=== PATIENT | female | born 1960 | race Caucasian/White ===

== ENCOUNTER 2019-02-03 20:35 | Emergency (ER) | payer OTHER ==
[2019-02-03 20:45] VITALS: BP 139/94; PULSE 98; TEMP 98.4; BMI 21.6
[2019-02-03] MEDS ORDERED: SODIUM CHLORIDE 0.9% 500 ML INFUS.BAG IV ONE (20:58)
--- NOTE | 2019-02-03 21:29 | PDOC ---
History of Present Illness - General Chief Complaint: Alcohol intoxication Stated Complaint: INTOX Time Seen by Provider: 02/03/19 20:39 - History of Present Illness Initial Comments: 02/03/19 21:04 58 y/o F presenting to ED with alcohol intoxication from [facility]. Pt. has been drinking since yesterday. Unable to tell me how much she drank or what she drank. She reports having incidents of alcohol intoxication with withdrawal in the past (chills) She denies any chest pain, SOB, dysuria, hematuria. Pt/ is agitated and unable to elaborate further. 02/03/19 21:05 Past History - Past Medical History Allergies/Adverse Reactions: Allergies Allergy/AdvReac Type Severity Reaction Status Date / Time Penicillins Allergy Mild Rash Verified 02/04/19 08:33 Home Medications: Ambulatory Orders Albuterol Sulfate Inhaler - [Ventolin HFA Inhaler -] 2 inh PO Q4H PRN #1 inh Norvasc - mg PO DAILY 02/04/19 Ranitidine HCl [Zantac] 150 mg PO BID 02/04/19 Sertraline HCl [Zoloft -] 50 mg PO DAILY 02/04/19 Asthma: Yes (ALBUTEROL INHALER) Cardiac Disorders: No CVA: No COPD: No Diabetes: No GI Disorders: No Disorders: Yes (HX OF UTI AND GONORRHEA IN THE PAST) HTN: No Hypercholesterolemia: No Seizures: No Thyroid Disease: No - Suicide/Smoking/Psychosocial Hx Smoking History: Never smoked Have you smoked in the past 12 months: Yes Number of Cigarettes Smoked Daily: 10 'Breaking Loose' booklet given: 02/25/14 Hx Alcohol Use: Yes (BEER/VODKA) Substance Use Type: Alcohol Hx Substance Use Treatment: Yes (OUT PT REHAB IN [place]) Review of Systems - Review of Systems Able to Perform ROS?: No (pt intoxicated.) Constitutional: Yes: Night Sweats *Physical Exam - Vital Signs Last Vital Signs Temp Pulse Resp BP Pulse Ox 98.4 F 98 H 18 139/94 97 02/03/19 20:39 02/03/19 20:39 02/03/19 20:39 02/03/19 20:39 02/03/19 20:39 - Physical Exam General Appearance: Yes: Nourished, Disheveled HEENT: positive: EOMI. negative: Scleral Icterus (R), Scleral Icterus (L) Neck: positive: Trachea midline, Supple Respiratory/Chest: positive: Wheezing. negative: Chest Tender, Respiratory Distress, Accessory Muscle Use, Labored Respiration, Crackles, Rales Cardiovascular: positive: Regular Rhythm, Regular Rate, S1, S2. negative: Edema , JVD Gastrointestinal/Abdominal: positive: Normal Bowel Sounds, Soft, Tenderness, Other (RUQ, epigastric and suprapubic pain). negative: Hernia, Mass, Hepatomegaly Musculoskeletal: positive: Normal Inspection. negative: CVA Tenderness Extremity: positive: Normal Inspection, Normal Range of Motion. negative: Tender Integumentary: positive: Normal Color, Dry, Warm. 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 negative: Finger to Nose ED Treatment Course - LABORATORY CBC & Chemistry Diagram: 02/03/19 21:45 02/03/19 21:45 - RADIOLOGY Radiology Studies Ordered: Category Date Time Status ABDOMEN US -LIMITED [US] Stat Ultrasound 02/03/19 21:01 Ordered Medical Decision Making - Medical Decision Making 02/03/19 21:08 58 y/o F presenting to ED with alcohol intoxication from [facility]. Some abdominal tenderness present on exam (RUQ and suprapubic) Labs/Imaging/Meds - cbc, cmp -RUQ u/s -RUQ u/s - Non-specific mild dilation of the common duct. -Increased echogenicity of the hepatic parenchyma consistent with diffuse fatty infiltration -Ectatic proximal abdominal aorta 02/03/19 22:25 A bed has been kept on hold for her at [facility]. She will be heading there with security. [facility] refused to accept patient without alcohol level documented. Alcohol level drawn from 1:15 a.m shows alcohol at 283.[address] [facility] would still not accept her at that level . another alcohol level has been drawn and sent to the lab at 4:50a.m Alcohol level 175 pt discharged to [facility]. sobering up and less combative *DC/Admit/Observation/Transfer Diagnosis at time of Disposition: Alcohol intoxication Qualifiers: Complication of substance-induced condition: uncomplicated Qualified Code(s): F10.920 - Alcohol use, unspecified with intoxication, uncomplicated - Discharge Dispostion Disposition: HOME Condition at time of disposition: Stable Decision to Admit order: No - Referrals - Patient Instructions - Post Discharge Activity - Transfer to Acute Care Facility Accepting Physician:: Renee Callahan Transfer comment: 02/03/19 22:57 Pt. being discharged to [facility].
[2019-02-03 21:54] LABS: BASO % 1.1 % (0-2.0); HEMATOCRIT 45.3 % (32.4-45.2); HEMOGLOBIN 15.3 GM/dL (10.7-15.3); LYMPH % 18.9 % (8-40); MCH 34.9 pg (25.7-33.7); MCHC 33.9 g/dl (32.0-36.0); MEAN CELL VOLUME 103.1 fl (80-96); MEAN PLT VOLUME 10.8 fl (7.5-11.1); MONO % 10.9 % (3.8-10.2); NEUT % 68.1 % (42.8-82.8); PLATELET COUNT 173 K/MM3 (134-434); RBC 4.39 M/mm3 (3.60-5.2); WHITE BLOOD COUNT 7.6 K/mm3 (4.0-10.0)
[2019-02-03 22:16] LABS: ALBUMIN 3.8 g/dl (3.4-5.0); BILIRUBIN,TOTAL 0.2 mg/dL (0.2-1); BLOOD UREA NITROGEN 12.1 mg/dL (7-18); CALCIUM 8.9 mg/dL (8.5-10.1); CREATININE 0.7 mg/dL (0.55-1.3); POTASSIUM 3.7 mmol/L (3.5-5.1); TOT PROT 7.4 g/dl (6.4-8.2)
--- NOTE | 2019-02-03 22:24 | PDOC ---
Documentation entered by Gurpreet Tomlinson SCRIBE, acting as scribe for Wanda Fontana MD. Wanda Fontana MD: This documentation has been prepared by the Davi lennon Daniel, SCRIBE, under my direction and personally reviewed by me in its entirety. I confirm that the documentation accurately reflects all work, treatment, procedures, and medical decision making performed by me. Attending Attestation - Resident Resident Name: [email or web address] - ED Attending Attestation I have performed the following: I have examined & evaluated the patient, The case was reviewed & discussed with the resident, I agree w/resident's findings & plan - HPI HPI: 02/03/19 21:46 The patient is a 58 year old female with a past medical history of asthma sent in today from [facility] for evaluation of alcohol intoxication. The patient was sent in by [facility] for a TERRENCE of 365. Patient is agitated and unable to provide much history. Allergies: penicillins - Physicial Exam PE: 02/03/19 23:27 GENERAL: +visibly drunk. +unsteady on her feet. Awake, alert, in no acute distress HEAD: No signs of trauma EYES: PERRLA, EOMI, sclera anicteric, conjunctiva clear ENT: Auricles normal inspection, hearing grossly normal, nares patent, oropharynx clear without exudates. Moist mucosa NECK: Normal ROM, supple, no lymphadenopathy, JVD, or masses LUNGS: Breath sounds equal, clear to auscultation bilaterally. No wheezes, and no crackles HEART: Regular rate and rhythm, normal S1 and S2, no murmurs, rubs or gallops ABDOMEN: +obese abdomen. Soft, nontender, normoactive bowel sounds. No guarding , no rebound. No masses EXTREMITIES: Normal range of motion, no edema. No clubbing or cyanosis. No cords, erythema, or tenderness NEUROLOGICAL: Cranial nerves II through XII grossly intact. Normal speech SKIN: Warm, Dry, normal turgor, no rashes or lesions noted. - Medical Decision Making 02/03/19 22:21 Labs normal; pt has elevated alk phos and slight RUQ are normal. 02/04/19 03:15 1:15AM alcohol level is 280; we waited 2 hrs. alcohol level is now probably 200 ; pt will be sent to [facility]. I am calling the PA at [facility] and I cannot reach her. I will send the patient over with the hospital security. 02/04/19 04:18 Pt is awake and alert and speaking clearly and requesting a duoneb before she goes to the [facility] area.
[2019-02-04] MEDS ORDERED: ALBUTEROL SO4 2.5/IPRATROPIUM 0.5 INH SOL 3 ML VIAL.NEB. NEB ONE ×2 (04:14→04:32)
[2019-02-04] MEDS ORDERED: MAG HYDROX/AL HYDROX/SIMETH 30 ML UNIT-DOSE CUP PO ONE (04:19)
== END 2019-02-04 05:41 | disposition home or self-care (01) ==
LOC: JER 20:35
PROC: 3E0F7GC Introduction of Other Therapeutic Substance into Respiratory Tract, Via Natural or Artificial Opening (ICD-10-PCS; principal; 2019-02-03)
DX: F10.220 Alcohol dependence with intoxication, uncomplicated (principal); Y90.8 Blood alcohol level of 240 mg/100 ml or more; J45.909 Unspecified asthma, uncomplicated; Z86.19 Personal history of other infectious and parasitic diseases; Z87.440 Personal history of urinary (tract) infections
CPT/HCPCS: 36415; 76705-TC; 80053; 80307; 83690; 85025; 94640; 99282-25

== ENCOUNTER 2019-02-04 08:14 | Inpatient (IN) | payer OTHER ==
[2019-02-04 08:43] VITALS: BMI 25.0
--- NOTE | 2019-02-04 09:08 | HP ---
CIWA Score Nausea/Vomitin Muscle Tremors: 3 Anxiety: 3 Agitation: 3 Paroxysmal Sweats: 1-Minimal Palms Moist Orientation: 0-Oriented Tacttile Disturbances: 1-Very Mild Itch/Numbness Auditory Disturbances: 0-None Visual Disturbances: 1-Very Mild Sensitivity Headache: 2-Mild CIWA-Ar Total Score: 16 - Admission Criteria OASAS Guidelines: Admission for Medically Managed Detox: Requires at least one of the followin. CIWA greater than 12 2. Seizures within the past 24 hours 3. Delirium tremens within the past 24 hours 4. Hallucinations within the past 24 hours 5. Acute intervention needed for co occurring medical disorder 6. Acute intervention needed for co occurring psychiatric disorder 7. Severe withdrawal that cannot be handled at a lower level of care (continued vomiting, continued diarrhea, abnormal vital signs) requiring intravenous medication and/or fluids 8. Admission ROS BHS - HPI Chief Complaint: i need help to stop drinking alcohol Allergies/Adverse Reactions: Allergies Allergy/AdvReac Type Severity Reaction Status Date / Time Penicillins Allergy Mild Rash Verified 02/04/19 08:33 History of Present Illness: this 58 years old female with alcohol dependence,seeking detox,withdrawal symptom patient was intoxicated ,seen in [facility] last night,medically clear to come for detox last detox [facility] last week,not completed asthma on albuterol and symbicort hypertension on norvasc denied seizure gerd syncope multiple admissions in detox but keep relapsing no significant period of sobriety plan for out patient program anxiety,depression,insomnia tar staining both feet and right leg 3 days b;ister both feet Exam Limitations: No Limitations - Ebola screening Have you traveled outside of the country in the last 21 days: No Have you had contact with anyone from an Ebola affected area: No Do you have a fever: No - Review of Systems Constitutional: Chills, Loss of Appetite, Malaise, Night Sweats, Changes in sleep, Weakness EENT: reports: Nose Congestion Respiratory: reports: No Symptoms reported, Other (asyhma) Cardiac: reports: No Symptoms Reported GI: reports: Diarrhea, Nausea, Vomiting, Abdominal cramping : reports: No Symptoms Reported Musculoskeletal: reports: Back Pain, Muscle Pain Integumentary: reports: Dryness Neuro: reports: Headache, Tremors Endocrine: reports: No Symptoms Reported Hematology: reports: No Symptoms Reported Psychiatric: reports: No Sypmtoms Reported, Judgement Intact, Mood/Affect Appropiate, Orientated x3, Anxious, Depressed, other Other Systems: Reviewed and Negative (insomnia) Patient History - Patient Medical History Hx Asthma: Yes (ALBUTEROL INHALER) Hx Chronic Obstructive Pulmonary Disease (COPD): No Hx Cardiac Disorders: No Hx Hypertension: No Hx Hypercholesterolemia: No HX Cerebrovascular Accident: No Hx Seizures: No Hx Diabetes: No Hx Gastrointestinal Disorders: No Hx Genitourinary Disorders: Yes (HX OF UTI AND GONORRHEA IN THE PAST) Hx Thyroid Disease: No Hx Human Immunodeficiency Virus (HIV): No (NEGATIVE HX last 2018 negative) Hx Hepatitis C: No Hx Depression: Yes (NOT ON MED) Hx Suicide Attempt: No (DENIES) Hx Bipolar Disorder: No Hx Schizophrenia: No Other Medical History: no suicidal,no homicidal - Patient Surgical History Past Surgical History: No - PPD History Previous Implant?: Yes Documented Results: Negative w/o proof Implanted On Prior R Admission?: Yes Date: 02/27/14 Results: 0 mm PPD to be Administered?: No - Reproductive History Patient is a Female of Child Bearing Age (11 -55 yrs old): No - Smoking Cessation Smoking history: Never smoked Have you smoked in the past 12 months: Yes Aproximately how many cigarettes per day: 10 Hx Chewing Tobacco Use: No Initiated information on smoking cessation: Yes 'Breaking Loose' booklet given: 02/04/19 - Substance & Tx. History Hx Alcohol Use: Yes Hx Substance Use: No Substance Use Type: Alcohol Hx Substance Use Treatment: Yes ([facility] week not completed) - Substances abused Alcohol Substance route: Oral Frequency: Daily Amount used: 2pints of vodka/2 of 12 ozs of beer Age of first use: 16 Date of last use: 02/03/19 Family Disease History - Family Disease History Family Disease History: Diabetes: Mother, Other: Brother (HTN), Sister (HTN) Admission Physical Exam S - Vital Signs Vital Signs: Vital Signs - 24 hr 02/04/19 08:32 Temperature 97.0 F L Pulse Rate 94 H Respiratory 16 Rate Blood Pressure 160/100 - Physical General Appearance: Yes: Moderate Distress, Tremorous, Sweating, Anxious HEENTM: Yes: Normal ENT Inspection, EDU, Pharynx Normal Respiratory: Yes: Within Normal Limits, Lungs Clear, Normal Breath Sounds Neck: Yes: Within Normal Limits, Supple, Trachea in good position Breast: Yes: Breast Exam Deferred Cardiology: Yes: Within Normal Limits, Regular Rhythm, Regular Rate, S1, S2 Abdominal: Yes: Within Normal Limits, Normal Bowel Sounds, Non Tender, Flat, Soft Genitourinary: Yes: Within Normal Limits Back: Yes: Muscle Spasm Musculoskeletal: Yes: full range of Motion, Back pain, Muscle Pain Extremities: Yes: Tremors, Other (ecchymosis in left lower back blister both feet tar staing both feet and right leg) Neurological: Yes: 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 intact, Fully Oriented, Alert, Motor Strength 5/5 Integumentary: Yes: Dry, Other (ecchymosis left lower back) Lymphatic: Yes: Within Normal Limits - Diagnostic (1) Alcohol dependence with uncomplicated withdrawal Current Visit: No Status: Acute (2) Alcohol dependence with uncomplicated intoxication Current Visit: No Status: Acute (3) Syncope Current Visit: No Status: Acute (4) Asthma Current Visit: No Status: Acute (5) Nicotine dependence Current Visit: No Status: Acute (6) Blister (nonthermal), unspecified foot, sequela Current Visit: No Status: Acute (7) Frequent falls Current Visit: No Status: Acute (8) Essential hypertension Current Visit: No Status: Acute Cleared for Admission S - Detox or Rehab [facility] Level of Care: Medically Managed Detox Regimen/Protocol: Librium Breathalyzer - Breathalyzer Breathalyzer: 0.121 Urine Drug Screen - Test Device Lot number: [id number] Expiration date: 10/30/20 - Control Is test valid?: Yes - Results Drug screen NEGATIVE: No Urine drug screen results: BZO-Benzodiazepines Inpatient Rehab Admission - Rehab Decision to Admit Inpatient rehab admission?: No
[2019-02-04] MEDS ORDERED: MAGNESIUM CITRATE 300 ML BOTTLE PO PRN (09:23)
[2019-02-04] MEDS ORDERED: ACETAMINOPHEN 325 MG TABLET (FP) PO PRN (09:23)
[2019-02-04] MEDS ORDERED: chlordiazePOXIDE HCL 25 MG CAPSULE PO PRN (09:23)
[2019-02-04] MEDS ORDERED: hydrOXYzine PAMOATE 25 MG CAPSULE (FP) PO PRN (09:23)
[2019-02-04] MEDS ORDERED: NICOTINE POLACRILEX 2 MG GUM BUC PRN (09:23)
[2019-02-04] MEDS ORDERED: IBUPROFEN 400 MG TABLET (FP) PO PRN (09:23)
[2019-02-04] MEDS ORDERED: MENTHOL/PHENOL 1 EACH UD MM PRN (09:23)
[2019-02-04] MEDS ORDERED: METHOCARBAMOL 500 MG TABLET PO PRN (09:23)
[2019-02-04] MEDS ORDERED: MAGNESIUM HYDROX 2400MG/30ML ORAL SUSPENSION 30 ML CUP PO PRN (09:23)
[2019-02-04] MEDS ORDERED: BISMUTH SUBSALICYLATE 524 MG/30 ML UD PO PRN (09:23)
[2019-02-04] MEDS: MAG HYDROX/AL HYDROX/SIMETH 30 ML UNIT-DOSE CUP PO PRN (11:11)
[2019-02-04] MEDS: chlordiazePOXIDE HCL 25 MG CAPSULE PO SCH ×3 (11:11→22:39)
[2019-02-04] MEDS: amLODIPine BESYLATE 5 MG TABLET (FP) PO SCH (11:11)
[2019-02-04] MEDS: BUDESONIDE/FORMETEROL FUMARATE 80/4.5 mcg INHALER IH SCH ×2 (11:11→22:38)
[2019-02-04] MEDS: NICOTINE 21 MG/24 HOURS TOPICAL PATCH TD SCH (11:12)
[2019-02-04] MEDS: SILVER SULFADIAZINE 1% TOP CREAM 50 GM JAR TP SCH ×2 (11:12→22:38)
[2019-02-04] MEDS: PRENATAL VITAMINS W/ FOLIC ACID TABLET (FP) PO SCH (11:12)
--- NOTE | 2019-02-04 12:46 | CONSULT ---
[facility] Psychiatric Consult - Data Date of interview: 02/04/19 Admission source: [facility] Identifying data: Patient is approached at bedside for the psychiatric interview. " I have a psychiatrist outside. I don't need to see a psychiatrist her." Ms Lacey declines psychiatric evaluation. Nursing staff is made aware.
[2019-02-04 12:49] LABS: HEMATOCRIT 42.2 % (32.4-45.2); HEMOGLOBIN 14.4 GM/dL (10.7-15.3); MCH 35.1 pg (25.7-33.7); MCHC 34.2 g/dl (32.0-36.0); MEAN CELL VOLUME 102.7 fl (80-96); MEAN PLT VOLUME 11.3 fl (7.5-11.1); RBC 4.11 M/mm3 (3.60-5.2); RDW 13.7 % (11.6-15.6); WHITE BLOOD COUNT 7.9 K/mm3 (4.0-10.0)
[2019-02-04 13:02] LABS: ALBUMIN 3.6 g/dl (3.4-5.0); BILIRUBIN,TOTAL 0.3 mg/dL (0.2-1); BLOOD UREA NITROGEN 12.1 mg/dL (7-18); CALCIUM 8.8 mg/dL (8.5-10.1); CREATININE 0.5 mg/dL (0.55-1.3); POTASSIUM 3.6 mmol/L (3.5-5.1)
[2019-02-04 13:06] LABS: PLATELET COUNT 149 K/MM3 (134-434)
[2019-02-04] MEDS ORDERED: ONDANSETRON *ODT* 4 MG TABLET SL ONE (14:00)
[2019-02-04] MEDS: RANITIDINE HCL 150 MG TABLET (FP) PO SCH ×2 (14:06→22:38)
[2019-02-04] MEDS: ALBUTEROL SO4 8 GM HFA INHALER IH PRN (18:17)
[2019-02-04] MEDS ORDERED: ONDANSETRON *ODT* 4 MG TABLET SL PRN (19:00)
[2019-02-04] MEDS: THIAMINE HCL 100 MG TABLET (FP) PO SCH (22:38)
[2019-02-05] MEDS: chlordiazePOXIDE HCL 25 MG CAPSULE PO SCH ×4 (05:53→22:06)
[2019-02-05] MEDS: MAG HYDROX/AL HYDROX/SIMETH 30 ML UNIT-DOSE CUP PO PRN ×2 (06:34→18:05)
[2019-02-05] MEDS: ALBUTEROL SO4 8 GM HFA INHALER IH PRN ×2 (06:35→20:35)
[2019-02-05] MEDS: RANITIDINE HCL 150 MG TABLET (FP) PO SCH ×2 (10:23→22:07)
[2019-02-05] MEDS: SILVER SULFADIAZINE 1% TOP CREAM 50 GM JAR TP SCH ×2 (10:23→22:06)
[2019-02-05] MEDS: BUDESONIDE/FORMETEROL FUMARATE 80/4.5 mcg INHALER IH SCH ×2 (10:23→22:06)
[2019-02-05] MEDS: PRENATAL VITAMINS W/ FOLIC ACID TABLET (FP) PO SCH (10:23)
[2019-02-05] MEDS: amLODIPine BESYLATE 5 MG TABLET (FP) PO SCH (10:23)
--- NOTE | 2019-02-05 10:48 | PN ---
[facility] CIWA - CIWA Score Nausea/Vomitin-Mild Nausea/No Vomiting Muscle Tremors: 4-Moderate,w/Arms Extend Anxiety: 3 Agitation: 4-Moderately Restless Paroxysmal Sweats: 1-Minimal Palms Moist Orientation: 0-Oriented Tacttile Disturbances: 0-None Auditory Disturbances: 0-None Visual Disturbances: 0-None Headache: 0-None Present CIWA-Ar Total Score: 13 BHS Progress Note (SOAP) Subjective: 58 years old female admitted on 02/04/19 for acute alcohol withdrawal sx management doing well with librium detox ambulating on hallway social with peers less tremor mild sweat Objective: 02/05/19 10:48 Vital Signs Temperature 97.3 F L 02/05/19 09:24 Pulse Rate 82 02/05/19 09:24 Respiratory Rate 18 02/05/19 09:24 Blood Pressure 137/91 02/05/19 09:24 O2 Sat by Pulse Oximetry (%) Laboratory Last Values WBC 7.9 K/mm3 (4.0-10.0) 02/04/19 09:40 RBC 4.11 M/mm3 (3.60-5.2) 02/04/19 09:40 Hgb 14.4 GM/dL (10.7-15.3) 02/04/19 09:40 Hct 42.2 % (32.4-45.2) 02/04/19 09:40 MCV 102.7 fl (80-96) H 02/04/19 09:40 MCH 35.1 pg (25.7-33.7) H 02/04/19 09:40 MCHC 34.2 g/dl (32.0-36.0) 02/04/19 09:40 RDW 13.7 % (11.6-15.6) 02/04/19 09:40 Plt Count 149 K/MM3 (134-434) 02/04/19 09:40 MPV 11.3 fl (7.5-11.1) H 02/04/19 09:40 Sodium 143 mmol/L (136-145) 02/04/19 09:40 Potassium 3.6 mmol/L (3.5-5.1) 02/04/19 09:40 Chloride 106 mmol/L (98-107) 02/04/19 09:40 Carbon Dioxide 25 mmol/L (21-32) 02/04/19 09:40 Anion Gap 12 MMOL/L (8-16) 02/04/19 09:40 BUN 12.1 mg/dL (7-18) 02/04/19 09:40 Creatinine 0.5 mg/dL (0.55-1.3) L 02/04/19 09:40 Est GFR (CKD-EPI)AfAm 124.52 02/04/19 09:40 Est GFR (CKD-EPI)NonAf 107.44 02/04/19 09:40 Random Glucose 91 mg/dL (74-106) 02/04/19 09:40 Calcium 8.8 mg/dL (8.5-10.1) 02/04/19 09:40 Total Bilirubin 0.3 mg/dL (0.2-1) 02/04/19 09:40 AST 27 U/L (15-37) 02/04/19 09:40 ALT 32 U/L (13-61) 02/04/19 09:40 Alkaline Phosphatase 140 U/L (45-117) H 02/04/19 09:40 Total Protein 7.0 g/dl (6.4-8.2) 02/04/19 09:40 Albumin 3.6 g/dl (3.4-5.0) 02/04/19 09:40 RPR Titer Nonreactive (NONREACTIVE) 02/04/19 09:40 lab noted Assessment: 02/05/19 10:48 alcohol withdrawal sx Plan: continue alcohol detox
[2019-02-05] MEDS: NICOTINE 21 MG/24 HOURS TOPICAL PATCH TD SCH (11:13)
[2019-02-05] MEDS: ACETAMINOPHEN 325 MG TABLET (FP) PO PRN (12:30)
[2019-02-05] MEDS ORDERED: cloNIDine HCL 0.1 MG TABLET PO PRN (13:23)
[2019-02-05 16:12] LABS: HYALINE CASTS 10 /lpf (0-8); URINE APPEARANCE CLEAR; URINE BACTERIA 85.7 /hpf (NEGATIVE); URINE BILIRUBIN 1+ (NEGATIVE); URINE COLOR DK YELLOW; URINE GLUCOSE (UA) NEGATIVE (NEGATIVE); URINE KETONE TRACE (NEGATIVE); URINE LEUK ESTERASE TRACE (NEGATIVE); URINE NITRITE NEGATIVE (NEGATIVE); URINE PROTEIN NEGATIVE (NEGATIVE); URINE RBC 1 /hpf (0-4); URINE WBC 2 /hpf (0-5)
[2019-02-05] MEDS: THIAMINE HCL 100 MG TABLET (FP) PO SCH (22:07)
[2019-02-05] MEDS: MELATONIN 5 MG TABLETS PO PRN (22:07)
[2019-02-06] MEDS: chlordiazePOXIDE HCL 25 MG CAPSULE PO SCH ×4 (06:12→22:37)
[2019-02-06] MEDS: NICOTINE 21 MG/24 HOURS TOPICAL PATCH TD SCH (10:30)
[2019-02-06] MEDS: amLODIPine BESYLATE 5 MG TABLET (FP) PO SCH (10:30)
[2019-02-06] MEDS: BUDESONIDE/FORMETEROL FUMARATE 80/4.5 mcg INHALER IH SCH ×2 (10:30→21:29)
[2019-02-06] MEDS: PRENATAL VITAMINS W/ FOLIC ACID TABLET (FP) PO SCH (10:30)
[2019-02-06] MEDS: SILVER SULFADIAZINE 1% TOP CREAM 50 GM JAR TP SCH ×2 (10:30→21:30)
[2019-02-06] MEDS: RANITIDINE HCL 150 MG TABLET (FP) PO SCH ×2 (10:30→21:29)
[2019-02-06] MEDS: ACETAMINOPHEN 325 MG TABLET (FP) PO PRN (12:35)
--- NOTE | 2019-02-06 14:38 | PN ---
[facility] CIWA - CIWA Score Nausea/Vomitin-Mild Nausea/No Vomiting Muscle Tremors: 3 Anxiety: 2 Agitation: 2 Paroxysmal Sweats: 1-Minimal Palms Moist Orientation: 0-Oriented Tacttile Disturbances: 0-None Auditory Disturbances: 0-None Visual Disturbances: 0-None Headache: 0-None Present CIWA-Ar Total Score: 9 S Progress Note (SOAP) Subjective: feeling better today less tremor tolerate food and fluid doing well with librium detox regimen prefers to begin alcohol rehab tomorrow case discuss with counselor and nurse that the patient can be early discharge tomorrow that the patient will be reassess by the provider Objective: 02/06/19 14:40 Vital Signs Temperature 99.2 F 02/06/19 13:45 Pulse Rate 85 02/06/19 13:45 Respiratory Rate 18 02/06/19 13:45 Blood Pressure 133/88 02/06/19 13:45 O2 Sat by Pulse Oximetry (%) Laboratory Last Values WBC 7.9 K/mm3 (4.0-10.0) 02/04/19 09:40 RBC 4.11 M/mm3 (3.60-5.2) 02/04/19 09:40 Hgb 14.4 GM/dL (10.7-15.3) 02/04/19 09:40 Hct 42.2 % (32.4-45.2) 02/04/19 09:40 MCV 102.7 fl (80-96) H 02/04/19 09:40 MCH 35.1 pg (25.7-33.7) H 02/04/19 09:40 MCHC 34.2 g/dl (32.0-36.0) 02/04/19 09:40 RDW 13.7 % (11.6-15.6) 02/04/19 09:40 Plt Count 149 K/MM3 (134-434) 02/04/19 09:40 MPV 11.3 fl (7.5-11.1) H 02/04/19 09:40 Sodium 143 mmol/L (136-145) 02/04/19 09:40 Potassium 3.6 mmol/L (3.5-5.1) 02/04/19 09:40 Chloride 106 mmol/L (98-107) 02/04/19 09:40 Carbon Dioxide 25 mmol/L (21-32) 02/04/19 09:40 Anion Gap 12 MMOL/L (8-16) 02/04/19 09:40 BUN 12.1 mg/dL (7-18) 02/04/19 09:40 Creatinine 0.5 mg/dL (0.55-1.3) L 02/04/19 09:40 Est GFR (CKD-EPI)AfAm 124.52 02/04/19 09:40 Est GFR (CKD-EPI)NonAf 107.44 02/04/19 09:40 Random Glucose 91 mg/dL (74-106) 02/04/19 09:40 Calcium 8.8 mg/dL (8.5-10.1) 02/04/19 09:40 Total Bilirubin 0.3 mg/dL (0.2-1) 02/04/19 09:40 AST 27 U/L (15-37) 02/04/19 09:40 ALT 32 U/L (13-61) 02/04/19 09:40 Alkaline Phosphatase 140 U/L (45-117) H 02/04/19 09:40 Total Protein 7.0 g/dl (6.4-8.2) 02/04/19 09:40 Albumin 3.6 g/dl (3.4-5.0) 02/04/19 09:40 Urine Color Dk yellow 02/05/19 13:30 Urine Appearance Clear 02/05/19 13:30 Urine pH 8.0 (5.0-8.0) D 02/05/19 13:30 Ur Specific [place] 1.019 (1.010-1.035) 02/05/19 13:30 Urine Protein Negative (NEGATIVE) 02/05/19 13:30 Urine Glucose (UA) Negative (NEGATIVE) 02/05/19 13:30 Urine Ketones Trace (NEGATIVE) H 02/05/19 13:30 Urine Blood Negative (NEGATIVE) 02/05/19 13:30 Urine Nitrite Negative (NEGATIVE) 02/05/19 13:30 Urine Bilirubin 1+ (NEGATIVE) H 02/05/19 13:30 Urine Urobilinogen 1.0 mg/dL (0.2-1.0) 02/05/19 13:30 Ur Leukocyte Esterase Trace (NEGATIVE) 02/05/19 13:30 Urine WBC (Auto) 2 /hpf (0-5) 02/05/19 13:30 Urine RBC (Auto) 1 /hpf (0-4) 02/05/19 13:30 Urine Casts (Auto) 10 /lpf (0-8) 02/05/19 13:30 U Epithel Cells (Auto) 5.0 /HPF (0-5/HPF) 02/05/19 13:30 Urine Bacteria (Auto) 85.7 /hpf (NEGATIVE) 02/05/19 13:30 RPR Titer Nonreactive (NONREACTIVE) 02/04/19 09:40 lab noted Assessment: 02/06/19 14:41 mild alcohol withdrawal sx Plan: continue alcohol detox
[2019-02-06] MEDS: ALBUTEROL SO4 8 GM HFA INHALER IH PRN (17:23)
[2019-02-06] MEDS: MAG HYDROX/AL HYDROX/SIMETH 30 ML UNIT-DOSE CUP PO PRN (18:27)
[2019-02-06] MEDS: THIAMINE HCL 100 MG TABLET (FP) PO SCH (21:29)
[2019-02-06] MEDS: MELATONIN 5 MG TABLETS PO PRN (21:30)
[2019-02-07] MEDS ORDERED: chlordiazePOXIDE HCL 10 MG CAPSULE PO PRN
[2019-02-07] MEDS ORDERED: chlordiazePOXIDE HCL 10 MG CAPSULE PO SCH (05:00)
[2019-02-07 06:29] VITALS: BP 131/84; PULSE 63; TEMP 98.1
--- NOTE | 2019-02-07 14:08 | DS ---
[facility] Detox Discharge Summary Admission Date: 02/04/19 Discharge Date: 02/07/19 - History Present History: Alcohol Dependence Additional Comments: 58 years old female admitted on 02/04/19 for acute alcohol withdrawal sx management doing well with librium detox regimen no complication throughout the detox stay alert oriented x 3 no dizzness no shortness of breathe speech clearly coherently steady gait patient prefers to go to [facility] today - Physical Exam Results Vital Signs: Vital Signs Temperature 98.1 F 02/07/19 06:28 Pulse Rate 63 02/07/19 06:28 Respiratory Rate 18 02/07/19 06:28 Blood Pressure 131/84 02/07/19 06:28 O2 Sat by Pulse Oximetry (%) Pertinent Admission Physical Exam Findings: alcohol withdrawal sx Laboratory Last Values WBC 7.9 K/mm3 (4.0-10.0) 02/04/19 09:40 RBC 4.11 M/mm3 (3.60-5.2) 02/04/19 09:40 Hgb 14.4 GM/dL (10.7-15.3) 02/04/19 09:40 Hct 42.2 % (32.4-45.2) 02/04/19 09:40 MCV 102.7 fl (80-96) H 02/04/19 09:40 MCH 35.1 pg (25.7-33.7) H 02/04/19 09:40 MCHC 34.2 g/dl (32.0-36.0) 02/04/19 09:40 RDW 13.7 % (11.6-15.6) 02/04/19 09:40 Plt Count 149 K/MM3 (134-434) 02/04/19 09:40 MPV 11.3 fl (7.5-11.1) H 02/04/19 09:40 Sodium 143 mmol/L (136-145) 02/04/19 09:40 Potassium 3.6 mmol/L (3.5-5.1) 02/04/19 09:40 Chloride 106 mmol/L (98-107) 02/04/19 09:40 Carbon Dioxide 25 mmol/L (21-32) 02/04/19 09:40 Anion Gap 12 MMOL/L (8-16) 02/04/19 09:40 BUN 12.1 mg/dL (7-18) 02/04/19 09:40 Creatinine 0.5 mg/dL (0.55-1.3) L 02/04/19 09:40 Est GFR (CKD-EPI)AfAm 124.52 02/04/19 09:40 Est GFR (CKD-EPI)NonAf 107.44 02/04/19 09:40 Random Glucose 91 mg/dL (74-106) 02/04/19 09:40 Calcium 8.8 mg/dL (8.5-10.1) 02/04/19 09:40 Total Bilirubin 0.3 mg/dL (0.2-1) 02/04/19 09:40 AST 27 U/L (15-37) 02/04/19 09:40 ALT 32 U/L (13-61) 02/04/19 09:40 Alkaline Phosphatase 140 U/L (45-117) H 02/04/19 09:40 Total Protein 7.0 g/dl (6.4-8.2) 02/04/19 09:40 Albumin 3.6 g/dl (3.4-5.0) 02/04/19 09:40 Urine Color Dk yellow 02/05/19 13:30 Urine Appearance Clear 02/05/19 13:30 Urine pH 8.0 (5.0-8.0) D 02/05/19 13:30 Ur Specific Fe [employer] 1.019 (1.010-1.035) 02/05/19 13:30 Urine Protein Negative (NEGATIVE) 02/05/19 13:30 Urine Glucose (UA) Negative (NEGATIVE) 02/05/19 13:30 Urine Ketones Trace (NEGATIVE) H 02/05/19 13:30 Urine Blood Negative (NEGATIVE) 02/05/19 13:30 Urine Nitrite Negative (NEGATIVE) 02/05/19 13:30 Urine Bilirubin 1+ (NEGATIVE) H 02/05/19 13:30 Urine Urobilinogen 1.0 mg/dL (0.2-1.0) 02/05/19 13:30 Ur Leukocyte Esterase Trace (NEGATIVE) 02/05/19 13:30 Urine WBC (Auto) 2 /hpf (0-5) 02/05/19 13:30 Urine RBC (Auto) 1 /hpf (0-4) 02/05/19 13:30 Urine Casts (Auto) 10 /lpf (0-8) 02/05/19 13:30 U Epithel Cells (Auto) 5.0 /HPF (0-5/HPF) 02/05/19 13:30 Urine Bacteria (Auto) 85.7 /hpf (NEGATIVE) 02/05/19 13:30 RPR Titer Nonreactive (NONREACTIVE) 02/04/19 09:40 TB (QFT) Incubation (.) 02/04/19 09:40 TB Test (QFT) Nil 0.04 IU/mL (.) 02/04/19 09:40 TB Test (QFT) Mitogen 5.38 IU/mL (.) 02/04/19 09:40 TB Test (QFT) Antigen 0.04 IU/mL (.) 02/04/19 09:40 TB Test (QFT) Negative (Negative) 02/04/19 09:40 TB Positive Criteria (.) 02/04/19 09:40 lab noted - Treatment Hospital Course: Detox Protocol Followed, Detoxed Safely, Responded well, Discharged Condition Good, Rehab Referral Accepted Patient has Accepted a Rehab Referral to: [facility] - Medication Discharge Medications: Ambulatory Orders Albuterol Sulfate Inhaler - [Ventolin HFA Inhaler -] 2 inh PO Q4H PRN #1 inh Norvasc - mg PO DAILY 02/04/19 Ranitidine HCl [Zantac] 150 mg PO BID 02/04/19 Sertraline HCl [Zoloft -] 50 mg PO DAILY 02/04/19 - Diagnosis (1) Asthma Status: Chronic Qualifiers: Asthma severity: mild Asthma persistence: intermittent Asthma complication type: with status asthmaticus Qualified Code(s): J45.22 - Mild intermittent asthma with status asthmaticus (2) Alcohol dependence with uncomplicated withdrawal Status: Acute (3) Essential hypertension Status: Chronic - AMA Did Patient Leave Against Medical Advice: No
[2019-02-08] MEDS ORDERED: chlordiazePOXIDE HCL 10 MG CAPSULE PO SCH (05:00)
[2019-02-09] MEDS ORDERED: chlordiazePOXIDE HCL 10 MG CAPSULE PO ONE (05:00)
== END 2019-02-07 09:00 | disposition home or self-care (01) | DRG 775 ==
LOC: YASAS 08:14 → Y3N 09:25
PROVIDERS: ADMIT Surgery; ATTEND Surgery
PROC: HZ2ZZZZ Detoxification Services for Substance Abuse Treatment (ICD-10-PCS; principal; 2019-02-04)
DX: F10.230 Alcohol dependence with withdrawal, uncomplicated (principal); F10.220 Alcohol dependence with intoxication, uncomplicated; F17.210 Nicotine dependence, cigarettes, uncomplicated; I10 Essential (primary) hypertension; J45.22 Mild intermittent asthma with status asthmaticus; R29.6 Repeated falls; Z87.42 Personal history of other diseases of the female genital tract; Z88.0 Allergy status to penicillin
CPT/HCPCS: 36415; 80053; 81003; 85027; 86480; 86593

== ENCOUNTER 2019-08-17 11:22 | Inpatient (IN) | payer OTHER ==
--- NOTE | 2019-08-17 12:53 | BHS.RME ---
Substance Use & Tx History - Last Treatment Date of last treatment: 02/04/19 to 02/07/19 Where was last treatment: Detox ([facility]) Physical/Psych/Mental Status - Behavior General Behavior: Increased activity (restlessness, agitation) Eye Contact: Normal - Cooperativeness Cooperativeness: Cooperative - Thinking Thought Processes: Logical Thought content: Future oriented - Physical Health Problems Is patient presently having any pain?: No Does patient presently have any injuries (include location): No Does patient currently have a fever: No Is patient : No CIWA Nausea/Vomitin Muscle Tremors: 3 Anxiety: 3 Agitation: 3 Paroxysmal Sweats: 1-Minimal Palms Moist Orientation: 0-Oriented Tacttile Disturbances: 1-Very Mild Itch/Numbness Auditory Disturbances: 0-None (hypertension,jeffrey,insomnia,) Visual Disturbances: 0-None Headache: 2-Mild CIWA-Ar Total Score: 15
--- NOTE | 2019-08-17 16:05 | HP ---
CIWA Score Nausea/Vomitin Muscle Tremors: 3 Anxiety: 3 Agitation: 3 Paroxysmal Sweats: 1-Minimal Palms Moist Orientation: 0-Oriented Tacttile Disturbances: 1-Very Mild Itch/Numbness Auditory Disturbances: 0-None (hypertension,jeffrey,insomnia,) Visual Disturbances: 0-None Headache: 2-Mild CIWA-Ar Total Score: 15 - Admission Criteria OASAS Guidelines: Admission for Medically Managed Detox: Requires at least one of the followin. CIWA greater than 12 2. Seizures within the past 24 hours 3. Delirium tremens within the past 24 hours 4. Hallucinations within the past 24 hours 5. Acute intervention needed for co occurring medical disorder 6. Acute intervention needed for co occurring psychiatric disorder 7. Severe withdrawal that cannot be handled at a lower level of care (continued vomiting, continued diarrhea, abnormal vital signs) requiring intravenous medication and/or fluids 8. Admitting History and Physical - Admission Chief Complaint: i need helpe to stop drinking alcohol History of Present Illness: this 58 years old female with alcohol dependence seeking detox History Source: Patient - Past Medical History Cardiovascular: Yes: HTN Pulmonary: Yes: Asthma ...LMP: 01/14/10 ...: No Psych: Yes: Anxiety, Depression Dermatology: Yes: Eczema - Past Surgical History Past Surgical History: Yes: None - Smoking History Smoking history: Never smoked Have you smoked in the past 12 months: Yes Aproximately how many cigarettes per day: 10 - Alcohol/Substance Use Hx Alcohol Use: Yes - Social History Usual Living Arrangement: Yes: Other ([facility]) Occupation: unemployed on disability History of Recent Travel: No Admission ROS [facility] - [facility] Chief Complaint: i need help to stop drinking alcohol Allergies/Adverse Reactions: Allergies Allergy/AdvReac Type Severity Reaction Status Date / Time Penicillins Allergy Mild Rash Verified 02/04/19 08:33 History of Present Illness: this 58 years old female with alcohol dependence seeking detox,denied seizure, denied syncope multiple admissions in detox last ';11/18 to 02/07/19 eczema nicotine dependence asthma,hypertension longest sobriety 1 year living in the [facility],unemployed anxiety,depression Exam Limitations: No Limitations - Ebola screening Have you traveled outside of the country in the last 21 days: No Have you had contact with anyone from an Ebola affected area: No Have you been sick,other than usual withdrawal symptoms: No Do you have a fever: No - Review of Systems Constitutional: Loss of Appetite, Malaise, Night Sweats, Changes in sleep, Unexplained wgt Loss EENT: reports: Nose Congestion Respiratory: reports: No Symptoms reported, Other (asthma) Cardiac: reports: No Symptoms Reported GI: reports: Nausea, Poor Appetite Integumentary: reports: Dryness Neuro: reports: Headache, Tremors Endocrine: reports: No Symptoms Reported Hematology: reports: No Symptoms Reported Psychiatric: reports: No Sypmtoms Reported, Judgement Intact, Mood/Affect Appropiate, Orientated x3, Agitated, Depressed Other Systems: Reviewed and Negative Patient History - Patient Medical History Hx Asthma: Yes (ALBUTEROL INHALER) Hx Chronic Obstructive Pulmonary Disease (COPD): No Hx Cardiac Disorders: No Hx Hypertension: No Hx Hypercholesterolemia: No HX Cerebrovascular Accident: No Hx Seizures: No Hx Diabetes: No Hx Gastrointestinal Disorders: No Hx Genitourinary Disorders: Yes (HX OF UTI AND GONORRHEA IN THE PAST) Hx Sexually Transmitted Disorders: No Hx Renal Disease (ESRD): No Hx Thyroid Disease: No Hx Human Immunodeficiency Virus (HIV): No (NEGATIVE HX last 2018 negative) Hx Hepatitis C: No Hx Depression: Yes (NOT ON MED) Hx Suicide Attempt: No (DENIES) Hx Bipolar Disorder: No Hx Schizophrenia: No Other Medical History: no suicidal,nop homicidal - Patient Surgical History Past Surgical History: No - PPD History Previous Implant?: Yes Documented Results: Negative w/proof Implanted On Prior R Admission?: Yes Date: 02/27/14 Results: 0 mm PPD to be Administered?: Yes - Reproductive History Patient is a Female of Child Bearing Age (11 -55 yrs old): Yes Last Menstrual Period: 01/14/10 Patient : No - Smoking Cessation Smoking history: Never smoked Have you smoked in the past 12 months: Yes Aproximately how many cigarettes per day: 10 Hx Chewing Tobacco Use: No Initiated information on smoking cessation: Yes 'Breaking Loose' booklet given: 08/17/19 - Substance & Tx. History Hx Alcohol Use: Yes Hx Substance Use: Yes Substance Use Type: Alcohol Hx Substance Use Treatment: Yes ([facility] 02/04/19 to 02/07/19) - Substances abused Alcohol Substance route: Oral Frequency: Daily Amount used: 1pint of vodka Age of first use: 17 Date of last use: 08/16/19 Admission Physical Exam [facility] - Vital Signs Vital Signs: Vital Signs - 24 hr 08/17/19 13:54 Temperature 97.3 F L Pulse Rate 93 H Respiratory 20 Rate Blood Pressure 168/99 - Physical General Appearance: Yes: Moderate Distress, Tremorous, Irritable, Sweating, Anxious HEENTM: Yes: Normal ENT Inspection, Normocephalic, EDU, Pharynx Normal Respiratory: Yes: Lungs Clear, Normal Breath Sounds, No Respiratory Distress Neck: Yes: Within Normal Limits, Supple, Trachea in good position Breast: Yes: Breast Exam Deferred Cardiology: Yes: Within Normal Limits, Regular Rhythm, Regular Rate, S1, S2 Abdominal: Yes: Within Normal Limits, Normal Bowel Sounds, Non Tender, Flat, Soft Genitourinary: Yes: Within Normal Limits Back: Yes: Muscle Spasm Musculoskeletal: Yes: Back pain, Muscle Pain Extremities: Yes: Tremors 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 intact, Fully Oriented, Alert, Motor Strength 5/5 Integumentary: Yes: Dry Lymphatic: Yes: Within Normal Limits - Diagnostic (1) Alcohol dependence with uncomplicated withdrawal Current Visit: No Status: Acute (2) Nicotine dependence Current Visit: No Status: Acute (3) Asthma Current Visit: No Status: Chronic Qualifiers: Asthma severity: mild Asthma persistence: intermittent Asthma complication type: with status asthmaticus Qualified Code(s): J45.22 - Mild intermittent asthma with status asthmaticus (4) Essential hypertension Current Visit: No Status: Chronic Cleared for Admission [facility] - Detox or Rehab [facility] Level of Care: Medically Managed Detox Regimen/Protocol: Librium Breathalyzer - Breathalyzer Breathalyzer: 0.05 Urine Drug Screen - Test Device Lot number: [id number] Expiration date: 05/27/21 - Control Is test valid?: Yes - Results Drug screen NEGATIVE: Yes Urine drug screen results: BZO-Benzodiazepines Inpatient Rehab Admission - Rehab Decision to Admit Inpatient rehab admission?: No
[2019-08-17] MEDS ORDERED: METHOCARBAMOL 500 MG TABLET PO PRN (16:25)
[2019-08-17] MEDS ORDERED: IBUPROFEN 400 MG TABLET (FP) PO PRN (16:25)
[2019-08-17] MEDS ORDERED: hydrOXYzine PAMOATE 25 MG CAPSULE (FP) PO PRN (16:25)
[2019-08-17] MEDS ORDERED: BISMUTH SUBSALICYLATE 524 MG/30 ML UD PO PRN (16:25)
[2019-08-17] MEDS ORDERED: MELATONIN 5 MG TABLETS PO PRN (16:25)
[2019-08-17] MEDS ORDERED: ACETAMINOPHEN 325 MG TABLET (FP) PO PRN ×2 (16:25)
[2019-08-17] MEDS ORDERED: MAGNESIUM HYDROX 2400MG/30ML ORAL SUSPENSION 30 ML CUP PO PRN (16:25)
[2019-08-17] MEDS ORDERED: MENTHOL/PHENOL 1 EACH UD MM PRN (16:25)
[2019-08-17] MEDS ORDERED: NICOTINE POLACRILEX 2 MG GUM BUC PRN (16:25)
[2019-08-17] MEDS ORDERED: MAGNESIUM CITRATE 300 ML BOTTLE PO PRN (16:25)
[2019-08-17] MEDS ORDERED: chlordiazePOXIDE HCL 25 MG CAPSULE PO PRN (16:25)
[2019-08-17 17:07] VITALS: BMI 25.0
[2019-08-17] MEDS: BUDESONIDE/FORMETEROL FUMARATE 160/4.5 mcg INHALER IH SCH (22:25)
[2019-08-17] MEDS: THIAMINE HCL 100 MG TABLET (FP) PO SCH (22:26)
[2019-08-17] MEDS: chlordiazePOXIDE HCL 25 MG CAPSULE PO SCH (22:26)
[2019-08-17] MEDS: MONTELUKAST NA 10 MG TABLET PO SCH (22:26)
[2019-08-17] MEDS: HYDROCORTISONE 0.5% TOPICAL CREAM 30 GM TUBE TP SCH (22:48)
[2019-08-18] MEDS: chlordiazePOXIDE HCL 25 MG CAPSULE PO SCH ×4 (06:01→22:24)
--- NOTE | 2019-08-18 09:14 | PN ---
S CIWA - CIWA Score Nausea/Vomitin-Mild Nausea/No Vomiting Muscle Tremors: 4-Moderate,w/Arms Extend Anxiety: 3 Agitation: 0-Normal Activity Paroxysmal Sweats: 2 Orientation: 0-Oriented Tacttile Disturbances: 0-None Auditory Disturbances: 0-None Visual Disturbances: 1-Very Mild Sensitivity Headache: 2-Mild CIWA-Ar Total Score: 13 BHS Progress Note (SOAP) Subjective: 58 years old female admitted on 08/17/19 for alcohol withdrawal sx management treating with librium detox regiment ate breakfast tolerated food and fluid well resting in bed feeling tired prefers to sleep longer Objective: 08/18/19 09:12 Vital Signs Temperature 97.4 F L 08/18/19 07:33 Pulse Rate 76 08/18/19 07:33 Respiratory Rate 20 08/18/19 07:33 Blood Pressure 144/92 08/18/19 07:33 O2 Sat by Pulse Oximetry (%) 08/18/19 09:13 lab pending 08/18/19 09:13 bp elevation patient will received amlodipine around 10 am Assessment: 08/18/19 09:14 alcohol withdrawal Plan: librium regiment
[2019-08-18] MEDS ORDERED: NORVASC 5 MG PO SCH (10:00)
[2019-08-18] MEDS: BUDESONIDE/FORMETEROL FUMARATE 160/4.5 mcg INHALER IH SCH ×2 (10:21→22:23)
[2019-08-18] MEDS: FAMOTIDINE 20 MG TABLET PO SCH (10:21)
[2019-08-18] MEDS: amLODIPine BESYLATE 5 MG TABLET (FP) PO SCH (10:21)
[2019-08-18] MEDS: PRENATAL VITAMINS W/ FOLIC ACID TABLET (FP) PO SCH (10:22)
[2019-08-18] MEDS: HYDROCORTISONE 0.5% TOPICAL CREAM 30 GM TUBE TP SCH ×2 (10:22→22:23)
[2019-08-18] MEDS: ALBUTEROL SO4 HFA INHALER IH PRN (10:23)
[2019-08-18 11:47] LABS: HEMATOCRIT 34.1 % (32.4-45.2); HEMOGLOBIN 11.8 GM/dL (10.7-15.3); MCH 37.7 pg (25.7-33.7); MCHC 34.6 g/dl (32.0-36.0); MEAN CELL VOLUME 108.9 fl (80-96); MEAN PLT VOLUME 11.9 fl (7.5-11.1); PLATELET COUNT 108 K/MM3 (134-434); RBC 3.13 M/mm3 (3.60-5.2); RDW 13.6 % (11.6-15.6); WHITE BLOOD COUNT 4.4 K/mm3 (4.0-10.0)
[2019-08-18 12:08] LABS: BILIRUBIN,TOTAL 1.5 mg/dL (0.2-1); BLOOD UREA NITROGEN 9.1 mg/dL (7-18); CALCIUM 8.4 mg/dL (8.5-10.1); CREATININE 0.7 mg/dL (0.55-1.3); TOT PROT 6.3 g/dl (6.4-8.2)
[2019-08-18 12:09] LABS: POTASSIUM 2.8 mmol/L (3.5-5.1)
--- NOTE | 2019-08-18 14:34 | CONSULT ---
[facility] Psychiatric Consult - Data Date of interview: 08/18/19 Admission source: [facility] Identifying data: Patient is a 58 year old single female, mother of one, currently resides in a intermediate and is supported by SSI/SSD. This is one of multiple admissions for patient. Patient admitted to for alcohol dependence. Substance Abuse History: - Smoking Cessation. Smoking history: Never smoked. Have you smoked in the past 12 months: Yes. Aproximately how many cigarettes per day: 10. Hx Chewing Tobacco Use: No. Initiated information on smoking cessation: Yes. 'Breaking Loose' booklet given: 08/17/19. - Substance & Tx. History. Hx Alcohol Use: Yes. Hx Substance Use: Yes. Substance Use Type: Alcohol. Hx Substance Use Treatment: Yes ([facility] 02/04/19 to 02/07/19). - Substances abused. Alcohol. Substance route: Oral. Frequency: Daily. Amount used: 1pint of vodka. Age of first use: 17. Date of last use: 08/16/19 Medical History: Asthma, HX of UTI and Gonorrhea in the past. Psychiatric History: Patient's first psychiatric contact was in 2014 after she saw a psychiatrist at [facility] in [place], [place] due to her history of depressed mood and anxiety. She was diagnosed with depression and anxiety disorder and prescribed psychotropic medications. Patient continues to receive psychiatric care at the same facility but has not seen the psychiatrist since 2018 and has been out of medications since. She reports being prescribed zoloft 100mg + Trazodone 100mg HS. Patient request only to accept trazodone for insomnia. At present patient is experiencing difficulty sleeping. Physical/Sexual Abuse/Trauma History: denies. Mental Status Exam - Mental Status Exam Alert and Oriented to: Time, Place, Person Cognitive Function: Good Patient Appearance: Well Groomed Mood: Withdrawn Affect: Mood Congruent Patient Behavior: Cooperative Speech Pattern: Appropriate Voice Loudness: Normal Thought Process: Goal Oriented Thought Disorder: Not Present Hallucinations: Denies Suicidal Ideation: Denies Homicidal Ideation: Denies Insight/Judgement: Poor Sleep: Poorly Appetite: Fair Muscle strength/Tone: Normal Gait/Station: Normal Psychiatric Findings - Problem List ([place] 1, 2,3) (1) Depressive disorder Current Visit: No Status: Chronic (2) Alcohol dependence Current Visit: Yes Status: Acute (3) Alcohol dependence with uncomplicated withdrawal Current Visit: Yes Status: Acute (4) Nicotine dependence Current Visit: Yes Status: Acute (5) Alcohol-induced mood disorder Current Visit: Yes Status: Acute (6) Alcohol-induced sleep disorder Current Visit: Yes Status: Acute - Initial Treatment Plan Initial Treatment Plan: Psychoeducation provided. Detoxification in progress. Will order Trazodone 50mg HS. Benefits and side effects discussed. Verbal consent given
[2019-08-18] MEDS: MAG HYDROX/AL HYDROX/SIMETH 30 ML UNIT-DOSE CUP PO PRN (17:12)
[2019-08-18] MEDS: traZODone HCL 50 MG TABLET (FP) PO SCH (22:23)
[2019-08-18] MEDS: THIAMINE HCL 100 MG TABLET (FP) PO SCH (22:23)
[2019-08-18] MEDS: MONTELUKAST NA 10 MG TABLET PO SCH (22:23)
[2019-08-19] MEDS: MAG HYDROX/AL HYDROX/SIMETH 30 ML UNIT-DOSE CUP PO PRN (04:24)
[2019-08-19] MEDS: chlordiazePOXIDE HCL 25 MG CAPSULE PO SCH ×4 (05:45→22:28)
[2019-08-19] MEDS: ALBUTEROL SO4 HFA INHALER IH PRN (05:47)
--- NOTE | 2019-08-19 09:58 | PN ---
[facility] CIWA - CIWA Score Nausea/Vomitin-Mild Nausea/No Vomiting Muscle Tremors: 3 Anxiety: 3 Agitation: 0-Normal Activity Paroxysmal Sweats: 2 Orientation: 0-Oriented Tacttile Disturbances: 0-None Auditory Disturbances: 0-None Visual Disturbances: 1-Very Mild Sensitivity Headache: 1-Very Mild CIWA-Ar Total Score: 11 S Progress Note (SOAP) Subjective: 58 years old female admitted on 08/17/19 for alcohol withdrawal sx management treating with librium detox regiment Laboratory Last Values WBC 4.4 K/mm3 (4.0-10.0) 08/18/19 07:25 RBC 3.13 M/mm3 (3.60-5.2) L 08/18/19 07:25 Hgb 11.8 GM/dL (10.7-15.3) 08/18/19 07:25 Hct 34.1 % (32.4-45.2) D 08/18/19 07:25 MCV 108.9 fl (80-96) H 08/18/19 07:25 MCH 37.7 pg (25.7-33.7) H 08/18/19 07:25 MCHC 34.6 g/dl (32.0-36.0) 08/18/19 07:25 RDW 13.6 % (11.6-15.6) 08/18/19 07:25 Plt Count 108 K/MM3 (134-434) L D 08/18/19 07:25 MPV 11.9 fl (7.5-11.1) H 08/18/19 07:25 Sodium 141 mmol/L (136-145) 08/18/19 07:25 Potassium 2.8 mmol/L (3.5-5.1) L* 08/18/19 07:25 Chloride 108 mmol/L (98-107) H 08/18/19 07:25 Carbon Dioxide 23 mmol/L (21-32) 08/18/19 07:25 Anion Gap 10 MMOL/L (8-16) 08/18/19 07:25 BUN 9.1 mg/dL (7-18) 08/18/19 07:25 Creatinine 0.7 mg/dL (0.55-1.3) 08/18/19 07:25 Est GFR (CKD-EPI)AfAm 111.47 08/18/19 07:25 Est GFR (CKD-EPI)NonAf 96.18 08/18/19 07:25 Random Glucose 104 mg/dL (74-106) 08/18/19 07:25 Calcium 8.4 mg/dL (8.5-10.1) L 08/18/19 07:25 Total Bilirubin 1.5 mg/dL (0.2-1) H 08/18/19 07:25 AST 55 U/L (15-37) H 08/18/19 07:25 ALT 38 U/L (13-61) 08/18/19 07:25 Alkaline Phosphatase 117 U/L (45-117) 08/18/19 07:25 Total Protein 6.3 g/dl (6.4-8.2) L 08/18/19 07:25 Albumin 3.0 g/dl (3.4-5.0) L 08/18/19 07:25 RPR Titer Nonreactive (NONREACTIVE) 08/18/19 07:25 lab noted K+ low K+ supplement 40meq po x 2 dosages Objective: 08/19/19 10:01 Vital Signs Temperature 97.6 F 08/19/19 08:54 Pulse Rate 62 08/19/19 08:54 Respiratory Rate 18 08/19/19 08:54 Blood Pressure 129/85 08/19/19 08:54 O2 Sat by Pulse Oximetry (%) Laboratory Last Values WBC 4.4 K/mm3 (4.0-10.0) 08/18/19 07:25 RBC 3.13 M/mm3 (3.60-5.2) L 08/18/19 07:25 Hgb 11.8 GM/dL (10.7-15.3) 08/18/19 07:25 Hct 34.1 % (32.4-45.2) D 08/18/19 07:25 MCV 108.9 fl (80-96) H 08/18/19 07:25 MCH 37.7 pg (25.7-33.7) H 08/18/19 07:25 MCHC 34.6 g/dl (32.0-36.0) 08/18/19 07:25 RDW 13.6 % (11.6-15.6) 08/18/19 07:25 Plt Count 108 K/MM3 (134-434) L D 08/18/19 07:25 MPV 11.9 fl (7.5-11.1) H 08/18/19 07:25 Sodium 141 mmol/L (136-145) 08/18/19 07:25 Potassium 2.8 mmol/L (3.5-5.1) L* 08/18/19 07:25 Chloride 108 mmol/L (98-107) H 08/18/19 07:25 Carbon Dioxide 23 mmol/L (21-32) 08/18/19 07:25 Anion Gap 10 MMOL/L (8-16) 08/18/19 07:25 BUN 9.1 mg/dL (7-18) 08/18/19 07:25 Creatinine 0.7 mg/dL (0.55-1.3) 08/18/19 07:25 Est GFR (CKD-EPI)AfAm 111.47 08/18/19 07:25 Est GFR (CKD-EPI)NonAf 96.18 08/18/19 07:25 Random Glucose 104 mg/dL (74-106) 08/18/19 07:25 Calcium 8.4 mg/dL (8.5-10.1) L 08/18/19 07:25 Total Bilirubin 1.5 mg/dL (0.2-1) H 08/18/19 07:25 AST 55 U/L (15-37) H 08/18/19 07:25 ALT 38 U/L (13-61) 08/18/19 07:25 Alkaline Phosphatase 117 U/L (45-117) 08/18/19 07:25 Total Protein 6.3 g/dl (6.4-8.2) L 08/18/19 07:25 Albumin 3.0 g/dl (3.4-5.0) L 08/18/19 07:25 RPR Titer Nonreactive (NONREACTIVE) 08/18/19 07:25 lab noted repeat K+ 08/20/19 Assessment: 08/19/19 10:01 alcohol withdrawal Plan: librium regiment
[2019-08-19] MEDS: amLODIPine BESYLATE 5 MG TABLET (FP) PO SCH (10:37)
[2019-08-19] MEDS: BUDESONIDE/FORMETEROL FUMARATE 160/4.5 mcg INHALER IH SCH ×2 (10:37→22:27)
[2019-08-19] MEDS: HYDROCORTISONE 0.5% TOPICAL CREAM 30 GM TUBE TP SCH ×2 (10:37→22:28)
[2019-08-19] MEDS: PRENATAL VITAMINS W/ FOLIC ACID TABLET (FP) PO SCH (10:37)
[2019-08-19] MEDS: FAMOTIDINE 20 MG TABLET PO SCH (10:40)
[2019-08-19] MEDS: POTASSIUM CHLORIDE ORAL LIQUID 20 MEQ/15 ML PO SCH ×2 (12:39→14:50)
[2019-08-19 19:26] LABS: PH,URINE 7.5 (5.0-8.0); URINE APPEARANCE CLEAR; URINE BILIRUBIN NEGATIVE (NEGATIVE); URINE COLOR DK YELLOW; URINE GLUCOSE (UA) NEGATIVE (NEGATIVE); URINE KETONE TRACE (NEGATIVE); URINE LEUK ESTERASE NEGATIVE (NEGATIVE); URINE NITRITE NEGATIVE (NEGATIVE); URINE PROTEIN TRACE (NEGATIVE)
[2019-08-19] MEDS: THIAMINE HCL 100 MG TABLET (FP) PO SCH (22:27)
[2019-08-19] MEDS: MONTELUKAST NA 10 MG TABLET PO SCH (22:28)
[2019-08-19] MEDS: traZODone HCL 50 MG TABLET (FP) PO SCH (22:28)
[2019-08-20] MEDS ORDERED: chlordiazePOXIDE HCL 10 MG CAPSULE PO PRN
[2019-08-20] MEDS: chlordiazePOXIDE HCL 10 MG CAPSULE PO SCH ×4 (07:23→22:15)
[2019-08-20] MEDS: PRENATAL VITAMINS W/ FOLIC ACID TABLET (FP) PO SCH (10:46)
[2019-08-20] MEDS: BUDESONIDE/FORMETEROL FUMARATE 160/4.5 mcg INHALER IH SCH ×2 (10:48→22:15)
[2019-08-20] MEDS: FAMOTIDINE 20 MG TABLET PO SCH (10:49)
[2019-08-20] MEDS: HYDROCORTISONE 0.5% TOPICAL CREAM 30 GM TUBE TP SCH ×2 (10:50→22:16)
--- NOTE | 2019-08-20 11:27 | PN ---
S CIWA - CIWA Score Nausea/Vomitin-No Nausea/No Vomiting Muscle Tremors: 2 Anxiety: 2 Agitation: 0-Normal Activity Paroxysmal Sweats: 1-Minimal Palms Moist Orientation: 0-Oriented Tacttile Disturbances: 0-None Auditory Disturbances: 0-None Visual Disturbances: 1-Very Mild Sensitivity Headache: 0-None Present CIWA-Ar Total Score: 6 BHS Progress Note (SOAP) Subjective: 58 years old female admitted on 08/17/19 for alcohol withdrawal sx management treating with librium detox regiment feeling better today less tremor mild anxiety prefers to leave the detox tomorrow instead of estimated discharge date of 08/22/19 Objective: 08/20/19 11:26 Vital Signs Temperature 96.6 F L 08/20/19 08:56 Pulse Rate 84 08/20/19 08:56 Respiratory Rate 18 08/20/19 08:56 Blood Pressure 135/87 08/20/19 08:56 O2 Sat by Pulse Oximetry (%) Laboratory Last Values WBC 4.4 K/mm3 (4.0-10.0) 08/18/19 07:25 RBC 3.13 M/mm3 (3.60-5.2) L 08/18/19 07:25 Hgb 11.8 GM/dL (10.7-15.3) 08/18/19 07:25 Hct 34.1 % (32.4-45.2) D 08/18/19 07:25 MCV 108.9 fl (80-96) H 08/18/19 07:25 MCH 37.7 pg (25.7-33.7) H 08/18/19 07:25 MCHC 34.6 g/dl (32.0-36.0) 08/18/19 07:25 RDW 13.6 % (11.6-15.6) 08/18/19 07:25 Plt Count 108 K/MM3 (134-434) L D 08/18/19 07:25 MPV 11.9 fl (7.5-11.1) H 08/18/19 07:25 Sodium 141 mmol/L (136-145) 08/18/19 07:25 Potassium 2.8 mmol/L (3.5-5.1) L* 08/18/19 07:25 Chloride 108 mmol/L (98-107) H 08/18/19 07:25 Carbon Dioxide 23 mmol/L (21-32) 08/18/19 07:25 Anion Gap 10 MMOL/L (8-16) 08/18/19 07:25 BUN 9.1 mg/dL (7-18) 08/18/19 07:25 Creatinine 0.7 mg/dL (0.55-1.3) 08/18/19 07:25 Est GFR (CKD-EPI)AfAm 111.47 08/18/19 07:25 Est GFR (CKD-EPI)NonAf 96.18 08/18/19 07:25 Random Glucose 104 mg/dL (74-106) 08/18/19 07:25 Calcium 8.4 mg/dL (8.5-10.1) L 08/18/19 07:25 Total Bilirubin 1.5 mg/dL (0.2-1) H 08/18/19 07:25 AST 55 U/L (15-37) H 08/18/19 07:25 ALT 38 U/L (13-61) 08/18/19 07:25 Alkaline Phosphatase 117 U/L (45-117) 08/18/19 07:25 Total Protein 6.3 g/dl (6.4-8.2) L 08/18/19 07:25 Albumin 3.0 g/dl (3.4-5.0) L 08/18/19 07:25 Urine Color Dk yellow 08/19/19 17:12 Urine Appearance Clear 08/19/19 17:12 Urine pH 7.5 (5.0-8.0) 08/19/19 17:12 Ur Specific [place] 1.024 (1.010-1.035) 08/19/19 17:12 Urine Protein Trace (NEGATIVE) 08/19/19 17:12 Urine Glucose (UA) Negative (NEGATIVE) 08/19/19 17:12 Urine Ketones Trace (NEGATIVE) H 08/19/19 17:12 Urine Blood Negative (NEGATIVE) 08/19/19 17:12 Urine Nitrite Negative (NEGATIVE) 08/19/19 17:12 Urine Bilirubin Negative (NEGATIVE) 08/19/19 17:12 Urine Urobilinogen 1.0 mg/dL (0.2-1.0) 08/19/19 17:12 Ur Leukocyte Esterase Negative (NEGATIVE) 08/19/19 17:12 RPR Titer Nonreactive (NONREACTIVE) 08/18/19 07:25 lab noted low K+ 08/20/19 11:28 received 80meq K+ supplement repeat K+ pending Assessment: 08/20/19 11:28 alcohol withdrawal Plan: librium regiment
[2019-08-20] MEDS: amLODIPine BESYLATE 5 MG TABLET (FP) PO SCH (12:52)
[2019-08-20] MEDS: ALBUTEROL SO4 HFA INHALER IH PRN (16:18)
[2019-08-20] MEDS: THIAMINE HCL 100 MG TABLET (FP) PO SCH (22:15)
[2019-08-20] MEDS: traZODone HCL 50 MG TABLET (FP) PO SCH (22:15)
[2019-08-20] MEDS: MONTELUKAST NA 10 MG TABLET PO SCH (22:16)
[2019-08-21] MEDS ORDERED: chlordiazePOXIDE HCL 10 MG CAPSULE PO SCH (05:00)
[2019-08-21 07:56] VITALS: BP 112/87; PULSE 93; TEMP 96.6
--- NOTE | 2019-08-21 11:13 | DS ---
[facility] Detox Discharge Summary Admission Date: 08/17/19 Discharge Date: 08/21/19 - History Present History: Alcohol Dependence Additional Comments: 58 years old female admitted on 08/17/19 for alcohol withdrawal sx management treated with librium detox regiment Ms Lacey has completed the librium regiment and tolerated well seen by psychiatrist new maxwell patient was doing well through out the detox attended behavior and psychosocial therapies groups and meetings alert oriented x 3 respiratory clear lungs bilaterally on auscultation abdomen soft no rebound tenderness extremities full range of motion Pertinent Past History: time for discharge 32 minutes patient prefers returning to her supportive housing as recovery process - Physical Exam Results Vital Signs: Vital Signs Temperature 96.6 F L 08/21/19 07:56 Pulse Rate 93 H 08/21/19 07:56 Respiratory Rate 18 08/21/19 07:56 Blood Pressure 112/87 08/21/19 07:56 O2 Sat by Pulse Oximetry (%) Pertinent Admission Physical Exam Findings: alcohol withdrawal Laboratory Last Values WBC 4.4 K/mm3 (4.0-10.0) 08/18/19 07:25 RBC 3.13 M/mm3 (3.60-5.2) L 08/18/19 07:25 Hgb 11.8 GM/dL (10.7-15.3) 08/18/19 07:25 Hct 34.1 % (32.4-45.2) D 08/18/19 07:25 MCV 108.9 fl (80-96) H 08/18/19 07:25 MCH 37.7 pg (25.7-33.7) H 08/18/19 07:25 MCHC 34.6 g/dl (32.0-36.0) 08/18/19 07:25 RDW 13.6 % (11.6-15.6) 08/18/19 07:25 Plt Count 108 K/MM3 (134-434) L D 08/18/19 07:25 MPV 11.9 fl (7.5-11.1) H 08/18/19 07:25 Sodium 141 mmol/L (136-145) 08/18/19 07:25 Potassium 4.3 mmol/L (3.5-5.1) 08/20/19 09:10 Chloride 108 mmol/L (98-107) H 08/18/19 07:25 Carbon Dioxide 23 mmol/L (21-32) 08/18/19 07:25 Anion Gap 10 MMOL/L (8-16) 08/18/19 07:25 BUN 9.1 mg/dL (7-18) 08/18/19 07:25 Creatinine 0.7 mg/dL (0.55-1.3) 08/18/19 07:25 Est GFR (CKD-EPI)AfAm 111.47 08/18/19 07:25 Est GFR (CKD-EPI)NonAf 96.18 08/18/19 07:25 Random Glucose 104 mg/dL (74-106) 08/18/19 07:25 Calcium 8.4 mg/dL (8.5-10.1) L 08/18/19 07:25 Total Bilirubin 1.5 mg/dL (0.2-1) H 08/18/19 07:25 AST 55 U/L (15-37) H 08/18/19 07:25 ALT 38 U/L (13-61) 08/18/19 07:25 Alkaline Phosphatase 117 U/L (45-117) 08/18/19 07:25 Total Protein 6.3 g/dl (6.4-8.2) L 08/18/19 07:25 Albumin 3.0 g/dl (3.4-5.0) L 08/18/19 07:25 Urine Color Dk yellow 08/19/19 17:12 Urine Appearance Clear 08/19/19 17:12 Urine pH 7.5 (5.0-8.0) 08/19/19 17:12 Ur Specific [place] 1.024 (1.010-1.035) 08/19/19 17:12 Urine Protein Trace (NEGATIVE) 08/19/19 17:12 Urine Glucose (UA) Negative (NEGATIVE) 08/19/19 17:12 Urine Ketones Trace (NEGATIVE) H 08/19/19 17:12 Urine Blood Negative (NEGATIVE) 08/19/19 17:12 Urine Nitrite Negative (NEGATIVE) 08/19/19 17:12 Urine Bilirubin Negative (NEGATIVE) 08/19/19 17:12 Urine Urobilinogen 1.0 mg/dL (0.2-1.0) 08/19/19 17:12 Ur Leukocyte Esterase Negative (NEGATIVE) 08/19/19 17:12 RPR Titer Nonreactive (NONREACTIVE) 08/18/19 07:25 lab noted - Treatment Hospital Course: Detox Protocol Followed, Detoxed Safely, Responded well, Discharged Condition Good, Rehab Referral Accepted Patient has Accepted a Rehab Referral to: supportive housing - Medication Discharge Medications: Ambulatory Orders Albuterol Sulfate Inhaler - [Ventolin HFA Inhaler -] 2 inh PO Q6H 08/17/19 Amlodipine Besylate [Norvasc -] 5 mg PO DAILY 08/17/19 Ranitidine HCl 150 mg PO DAILY 08/17/19 Sertraline HCl [Zoloft -] 50 mg PO DAILY 08/17/19 - Diagnosis (1) Substance induced mood disorder Current Visit: Yes Status: Suspected (2) Nicotine dependence Current Visit: Yes Status: Acute Qualifiers: Nicotine product type: cigarettes Substance use status: in withdrawal Qualified Code(s): F17.213 - Nicotine dependence, cigarettes, with withdrawal (3) Asthma Current Visit: Yes Status: Chronic Qualifiers: Asthma severity: mild Asthma persistence: intermittent Asthma complication type: with status asthmaticus Qualified Code(s): J45.22 - Mild intermittent asthma with status asthmaticus (4) Alcohol dependence with uncomplicated withdrawal Current Visit: Yes Status: Acute (5) Essential hypertension Current Visit: Yes Status: Chronic - AMA Did Patient Leave Against Medical Advice: No CIWA Score - CIWA Score Nausea/Vomitin-No Nausea/No Vomiting Muscle Tremors: 2 Anxiety: 1-Mildly Anxious Agitation: 0-Normal Activity Paroxysmal Sweats: No Perspiration Orientation: 0-Oriented Tacttile Disturbances: 0-None Auditory Disturbances: 0-None Visual Disturbances: 0-None Headache: 0-None Present CIWA-Ar Total Score: 3
[2019-08-22] MEDS ORDERED: chlordiazePOXIDE HCL 10 MG CAPSULE PO ONE (05:00)
== END 2019-08-21 08:55 | disposition home or self-care (01) | DRG 897 ==
LOC: YASAS 11:22 → Y3N 16:39
PROVIDERS: ADMIT Allergy & Immunology; ATTEND Allergy & Immunology
PROC: HZ2ZZZZ Detoxification Services for Substance Abuse Treatment (ICD-10-PCS; principal; 2019-08-17)
DX: F10.230 Alcohol dependence with withdrawal, uncomplicated (principal); J45.22 Mild intermittent asthma with status asthmaticus; F17.210 Nicotine dependence, cigarettes, uncomplicated; F10.24 Alcohol dependence with alcohol-induced mood disorder; F10.282 Alcohol dependence with alcohol-induced sleep disorder; I10 Essential (primary) hypertension; E87.6 Hypokalemia; L30.9 Dermatitis, unspecified; Z87.440 Personal history of urinary (tract) infections; Z86.19 Personal history of other infectious and parasitic diseases; Z88.8 Allergy status to other drugs, medicaments and biological substances; Z59.0 Homelessness
CPT/HCPCS: 36415; 80053; 81003; 84132; 85027; 86593